=== PATIENT | female | born 2000 | race Caucasian/White ===

== ENCOUNTER 2024-03-02 07:33 | Emergency (ER) | payer OTHER, SELFPAY ==
[2024-03-02] VITALS (7 sets, daily range): BP systolic 90–127; BP diastolic 58–72; BMI 27.6
--- NOTE | 2024-03-02 08:11 | ED.GENMED ---
History of Present Illness
<Gael Del Rosario DO, Resident - Last Filed: 03/02/24 13:36>
General
Chief Complaint: Abdominal Pain
Source: patient
Time Seen by Provider: 03/02/24 07:59
History of Present Illness
History of Present Illness:
Patient is a 24 YO F with no significant PMH presenting to ED with RUQ pain and NV for last week. She reports no fevers, headaches, SOB, CP, diarrhea, , numbness or tingling. LMP was 02/07/24.
If applicable-neuro sx onset
Date of onset of symptoms: 02/24/24
Past History
<Gael Del Rosario DO, Resident - Last Filed: 03/02/24 13:36>
Past History
ED Past Medical History: None
ED Past Surgical History: (2021)
Patient has exhibited threatening behavior?: No
PSI?: No
Social History
Tobacco: Non-smoker
Alcohol: None
Employment: Employed
Family History
Family History: Cancer ( cancer)
Review of Systems
<Gael Del Rosario DO, Resident - Last Filed: 03/02/24 13:36>
Review of Systems
Constitutional: Reports fatigue
EENT: Reports no symptoms
Respiratory: Reports no symptoms
Cardiac: Reports no symptoms
ABD/GI: Reports abdominal pain, nausea, vomiting and pain
: Reports no symptoms
Musculoskeletal: Reports no symptoms
Skin: Reports no symptoms
Phy Exam
<Gael Del Rosario DO, Resident - Last Filed: 03/02/24 13:36>
General Physical Exam
General Presentation: well appearing and no apparent distress
General age: appears stated age
General Skin: warm
General Habitus: normal
General Mental: alert
General Hydration: appears well hydrated
Cardiovascular Exam
Cardiovascular Exam: regular rate/rhythm, no edema, no gallop, no JVD, no murmur and normal peripheral pulses
Pulmonary Exam
Pulmonary Exam: lungs clear, no respiratory distress, no rales, chest non tender, no crackles, no rhonchi, no stridor, no wheezing and no cough
Gastrointestinal Exam
Gastrointestinal Exam: soft, no organomegaly, no pulsatile mass, non distended, no cva tenderness and tender
Course
<Gael Del Rosario DO, Resident - Last Filed: 03/02/24 13:36>
Orders/Labs/Results
Orders:
Orders
03/02/24 08:00
Test Result ONCE
03/02/24 08:14
Add On- LAB Urgent
Tests Added?: Lipase
03/02/24 08:40
Complete Blood Count/With Diff Urgent
Comprehensive Metabolic Panel Stat
HCG, Serum Qualitative Screen Stat
Lipase Stat
Comment: ADD ON.
03/02/24 08:43
Ketorolac [Toradol] 15 mg IV NOW STA
Ondansetron Injectable [Zofran] 4 mg IV NOW STA
US Abdomen Complete/Upper Urgent
Comment:
Reason For Exam: RUQ pain, intermittent 2 wks
03/02/24 08:45
Urinalysis Reflex To Culture Urgent
Date Specimen was Collected: 03/02/24
Time Specimen was Collected: 08:43
Urine Microscopic Reflex Cult Urgent
Urine Culture Urgent
JUSTIN Source: U
Specimen Description:
Date Specimen was Collected: 03/02/24
Time Specimen was Collected: 08:43
0.9% Sodium Chloride 1000 ml [Nss] 1,000 ml IV BOLUS
Abnormal Lab Results
03/02/24 03/02/24
08:40 08:45
RBC 4.11 L 10^6/uL
(4.20-5.40)
Absolute Lymphs (auto) 3.7 H 10^3/uL
(1.2-3.4)
Carbon Dioxide 21 L mmol/L
(22-30)
Calcium 10.4 H mg/dl
(8.4-10.2)
Leukocyte Esterase Rfl Trace A
(Negative)
Urine Bacteria (Reflex) Moderate A
(Negative)
03/02/24 08:40
03/02/24 08:40
Vital Signs
Initial and Last Documented VS:
Initial Vital Signs
Temp Pulse Resp BP Pulse Ox
98.4 F 85 18 127/72 97
03/02/24 07:35 03/02/24 07:35 03/02/24 07:35 03/02/24 07:35 03/02/24 07:35
Last Documented Vital Signs
Temp Pulse Resp BP Pulse Ox
98.4 F 55 18 90/60 98
03/02/24 07:35 03/02/24 13:06 03/02/24 07:35 03/02/24 13:06 03/02/24 12:00
<Jesus Jha, DO - Last Filed: 03/02/24 11:15>
Orders/Labs/Results
Orders:
Orders
03/02/24 08:00
Test Result ONCE
03/02/24 08:14
Add On- LAB Urgent
Tests Added?: Lipase
03/02/24 08:40
Complete Blood Count/With Diff Urgent
Comprehensive Metabolic Panel Stat
HCG, Serum Qualitative Screen Stat
Lipase Stat
Comment: ADD ON.
03/02/24 08:43
Ketorolac [Toradol] 15 mg IV NOW STA
Ondansetron Injectable [Zofran] 4 mg IV NOW STA
US Abdomen Complete/Upper Urgent
Comment:
Reason For Exam: RUQ pain, intermittent 2 wks
03/02/24 08:45
Urinalysis Reflex To Culture Urgent
Date Specimen was Collected: 03/02/24
Time Specimen was Collected: 08:43
Urine Microscopic Reflex Cult Urgent
Urine Culture Urgent
JUSTIN Source: U
Specimen Description:
Date Specimen was Collected: 03/02/24
Time Specimen was Collected: 08:43
0.9% Sodium Chloride 1000 ml [Nss] 1,000 ml IV BOLUS
Abnormal Lab Results
03/02/24 03/02/24
08:40 08:45
RBC 4.11 L 10^6/uL
(4.20-5.40)
Absolute Lymphs (auto) 3.7 H 10^3/uL
(1.2-3.4)
Carbon Dioxide 21 L mmol/L
(22-30)
Calcium 10.4 H mg/dl
(8.4-10.2)
Leukocyte Esterase Rfl Trace A
(Negative)
Urine Bacteria (Reflex) Moderate A
(Negative)
03/02/24 08:40
03/02/24 08:40
Vital Signs
Initial and Last Documented VS:
Initial Vital Signs
Temp Pulse Resp BP Pulse Ox
98.4 F 85 18 127/72 97
03/02/24 07:35 03/02/24 07:35 03/02/24 07:35 03/02/24 07:35 03/02/24 07:35
Last Documented Vital Signs
Temp Pulse Resp BP Pulse Ox
98.4 F 55 18 90/60 98
03/02/24 07:35 03/02/24 13:06 03/02/24 07:35 03/02/24 13:06 03/02/24 12:00
<Gael Del Rosario DO, Resident - Last Filed: 03/02/24 13:36>
MDM/Problems Addressed
Differential Diagnosis Includes:
cholecystitis, pancreatitis, biliary colic
MDM/Problems Addressed:
Patient is a 24 YO F with no significant PMH presenting to ED with RUQ pain and NV for last week. Fluids, Toradol, ans Zofran given. Dr. Zuñiga (General Surgery) consulted and to see patient in ED. PO challenge per surgery recommendations and
elective surgery to be performed on 03/14.
Chronic conditions affecting care:
abdominal pain
Acute Exacerbation and/or Progression of Chronic Illness:
abdominal pain
<Gael Del Rosario DO, Resident - Last Filed: 03/02/24 13:36>
*Radiology
Radiology exam reviewed: radiology read reviewed (US abdomen showed contracted gallbladder and stones. c/f cholecystitis )
*Pulse Oximetry
Patient hypoxic: no
*EKG
Interpreted by ED Provider?: NA
*Fruit Loader Interpretation
Rate: Fruit Loader- N/A
*Critical Care Note
Total Time (30-74mins, 75-104mins- exclusive of procedures): Not Applicable
ED Attending Note
<Gael Del Rosario DO, Resident - Last Filed: 03/02/24 13:36>
-
Portions of this chart may have been created with voice recognition software.� Occasional wrong word or��sound alike� substitutions may have occurred due to the inherent limitations of voice recognition software.
<Jesus Jha DO - Last Filed: 03/02/24 11:15>
ED Attending Note
Patient seen and examined by attending physician: Yes
I performed a history and physical exam of patient and discussed management with resident, I reviewed resident's note and agree with documented findings and plan of care.: Yes
ED Attending Note:
I have reviewed and agree with history and treatment plan by Gael Del Rosario. My exam revealed 24-year-old female, afebrile. Right upper quadrant tenderness. No rebound or guarding. Ultrasound consistent with cholelithiasis, contracted
gallbladder, concern for cholecystitis. Dr. Zuñiga, contacted, general surgery to see patient in the ED.
Discharge Plan
Departure
Patient Disposition: Home (Routine Discharge)
Date of Disposition: 03/02/24
Time of Disposition: 13:06
Patient with high blood pressure during this ER visit?: No
Condition: Fair
Discharge Problem:
Biliary colic
Instructions: Choosing surgery to treat gallstones
Prescriptions:
No Action
escitalopram oxalate 10 MG tablet
20 mg PO DAILY
Referrals:
Francesca Merrill NP [Family Provider] -
John Zuñiga MD [Active] - Keep scheduled appt
Stand Alone Forms: Return to Work
Interventions
Interventions:
*Risk Screen - Suicide Last Done: 03/02/24 07:35
*General Assessment Last Done: 03/02/24 07:35
*Neglect/Abuse Screening Last Done: 03/02/24 07:35
ED- Fall Risk Assessment Last Done: 03/02/24 09:09
*ED COVID-19 Vaccine History Last Done: 03/02/24 07:52
ZT-Urhoww-Bvlbjqkmvz Assessment Last Done: 03/02/24 07:52
Discharge Date and Time
Print Language: HUNGARIAN
[2024-03-02 08:49] LABS: % Basophils 0.4 % (0-2); % Eosinophils 1.3 % (0-6); % Immature Granulocytes 0.3 % (0-0.5); % Lymphocytes 47.1 % (20.5-51.1); % Monocytes 7.3 % (1.7-9.3); % Neutrophils 43.6 % (42.2-75.2); Absolute Eosinophils 0.1 10^3/uL (0-0.7); Absolute Lymphocytes 3.7 10^3/uL (1.2-3.4); Absolute Monocytes 0.6 10^3/uL (0.1-0.6); Absolute Neutrophils 3.4 10^3/uL (1.4-6.5); Hematocrit 37.1 % (37.0-47.0); Hemoglobin 12.6 g/dL (12.0-16.0); Mean Corpuscular Hgb 30.7 pg (27.0-31.0); Mean Corpuscular Volume 90.3 fL (81.0-99.0); Mean Platelet Volume 10.1 fL (7.4-10.4); Nucleated Red Blood Cells % 0 %; Platelet Count 325 10^3/uL (130-400); Red Blood Cell Count 4.11 10^6/uL (4.20-5.40); Red Cell Dist. Width 12.9 % (11.5-14.5); White Blood Cell Count 7.8 10^3/uL (4.8-10.8)
[2024-03-02] MEDS: TORADOL 15 MG IV (08:50)
[2024-03-02] MEDS: NSS 1000 IV (08:50)
[2024-03-02] MEDS: ZOFRAN 4 MG IV (08:51)
[2024-03-02 09:01] LABS: HCG, Serum Qualitative Screen Negative
[2024-03-02 09:03] LABS: Urine Albumin Negative (Neg - Trace); Urine Bilirubin Negative (Negative); Urine Character Clear (Clear); Urine Color Yellow; Urine Glucose Negative (Negative); Urine Ketone Negative (Negative); Urine Leukocyte Trace (Negative); Urine Nitrite Negative (Negative); Urine Occult Blood Negative (Negative); Urine Specific Gravity 1.015 (<1.030); Urine Urobilinogen Negative (Neg - 1+); Urine pH 6.5 (5.0-9.0)
[2024-03-02 09:06] LABS: ALT (SGPT) 22 U/L (0-35); AST (SGOT) 25 U/L (14-36); Albumin 4.8 g/dl (3.5-5.0); Alkaline Phosphatase 68 U/L (38-126); Blood Urea Nitrogen 15 mg/dl (7-17); Calcium 10.4 mg/dl (8.4-10.2); Carbon Dioxide 21 mmol/L (22-30); Chloride 105 mmol/L (98-107); Estimated Creatinine Clearance 117 ml/min; Glucose 96 mg/dl (70-99); Potassium 4.2 mmol/L (3.5-5.1); Sodium 137 mmol/L (135-145); Total Bilirubin 0.7 mg/dl (0.2-1.3); Total Protein 7.4 g/dl (6.3-8.2); eGFR > 60.00
[2024-03-02 09:13] LABS: Urine Squamous Cell 16-20 /LPF (Few); Urine Urothelial Cell 0-2 /LPF (FEW)
[2024-03-02 09:14] LABS: Urine Bacteria Moderate (Negative); Urine Red Blood Cell 0-2 /HPF (0-2)
[2024-03-02 09:39] LABS: Lipase 67 U/L (23-300)
--- NOTE | 2024-03-02 11:53 | CON.GS ---
Addendum entered and electronically signed by John Zuñiga MD 03/02/24 12:08:
Pt prefers to defer surgery today and return electively. My office will schedule for surgery 03/14/24. She was informed of this date.
In the meantime she was advised to avoid fat in her diet as much as possible, to manage pain with ibuprofen, rest, warm compress. Advised to RTED if pain duration>8-12 hrs, if she develops f/c/n/v.
Plan for PO challenge and DC home if tolerates.
Original Note:
Consultation
-
Requesting Provider: Carin
Performing Provider: Yogesh
Reason for Consultation: RUQ pain, gallstones
Medical History
-
Chief Complaint: Abd pain
History of Present Illness:
24F with 1 week of intermittent abd pain without clear triggers or relieving factors. Denies radiation to her back or anywhere else. Endorses nausea throughout the week with vomiting at home last night prior to admit. Pain was progressive and
localized to RUQ, now is improved. Denies f/c, denies changes to urine/stool.
Past Medical History
Past Medical History: Reviewed & Noncontributory
Past Surgical History: Reviewed & Noncontributory and
Social History
Tobacco: Non-Smoker
Alcohol: None
Personal: Partner
Living: With Family
Employment: Employed
Family History
Family History: Reviewed & Noncontributory
Allergies / Home Medications
Allergy/AdvReac Type Severity Reaction Status Date / Time
nitrofurantoin Allergy Unknown Verified 03/02/24 07:35
[From Macrobid]
�Medication �Instructions �Recorded �Confirmed �Type
escitalopram oxalate 10 mg tablet 20 mg PO DAILY 10/07/16 01/02/17 History
Review of Systems
-
A 10 point review of systems was completed, and was negative except as per HPI.
Physical Exam
Vital Signs
Temp Pulse Resp BP Pulse Ox
98.4 F 85 18 98/69 100
03/02/24 07:35 03/02/24 07:35 03/02/24 07:35 03/02/24 11:05 03/02/24 11:05
03/01/24 03/02/24 03/03/24
06:59 06:59 06:59
Actual Weight 61.9 kg
Body Mass Index (BMI) 27.6
Lab Results
03/02/24 08:40
03/02/24 08:40
WBC 7.8 10^3/uL (4.8-10.8) 03/02/24 08:40
Hgb 12.6 g/dL (12.0-16.0) 03/02/24 08:40
Hct 37.1 % (37.0-47.0) 03/02/24 08:40
Plt Count 325 10^3/uL (130-400) 03/02/24 08:40
Abs Immat Gran (auto) 0.0 10^3/uL (0-0.05) 03/02/24 08:40
Neutrophils % 43.6 % (42.2-75.2) 03/02/24 08:40
Physical Exam
General: Well Developed, Well Nourished and No Apparent Distress
GI: Soft, Non Distended and Tender (mild ttp RUQ without R/R/G)
Skin: Warm and Dry
Neuro: AO x 3
Psych: Calm
Data Reviewed
-
Ultrasound: Image Personally Visualized and interpreted, Report Reviewed by me, Discussed with Nurse and Discussed with Patient
Labs: Labs Reviewed by me, Discussed with Nurse and Discussed with Patient
Assessment / Plan
-
24F with symptomatic cholelithiasis vs ACC
AFVSS, mildly tender to RUQ on exam but reports improvement overall in her pain
No leukocytosis, no left shift
LFTs WNL
US shows significant stone burden, no GBWT, no PCF, CBD 3mm
Plan:
Discussed options including CCY today vs PO challenge and home with return for elective CCY at a date in the near future
She prefers to discuss with her fiance before making a final decision
== END 2024-03-02 13:42 | disposition home or self-care (01) ==
LOC: EMR 07:33
PROVIDERS: EMERGENCY PHYSICIAN Emergency Medicine; FAMILY PHYSICIAN Nurse Practitioner Family
DX: K80.70 Calculus of gallbladder and bile duct without cholecystitis without obstruction (principal)
CPT/HCPCS: 99284; 96374; 96375; 96361; 76700; 80053; 81003; 81015; 83690; 84703; 85025; 87086

== ENCOUNTER 2024-03-14 06:16 | Day surgery (SDC) | payer OTHER, SELFPAY ==
[2024-03-14] VITALS (11 sets, daily range): BP systolic 92–107; BP diastolic 52–75; BMI 27.4
[2024-03-14] MEDS: NORMOSOL-R 1000 IV (12:55)
[2024-03-14] MEDS: TYLENOL 1000 MG PO (13:04)
--- NOTE | 2024-03-14 15:57 | OR.RPT ---
Operative Report
Operative Report
Primary Surgeon: Yogesh
Assisting: Zunilda URIBE
Pre-op Diagnosis: Biliary colic
Post-op Diagnosis: Same
Procedure Performed: Robot assisted laparoscopic cholecystectomy
Anesthesia Type: GETA
Specimen / Cultures: Gallbladder
Estimated Blood Loss: 2cc
Complications: None immediate
Operative Findings: Softly distended gallbladder without fibrosis or wall thickening
Date of Surgery:� 03/14/24
Indications: This 24F developed biliary colic with normal liver enzymes and without ductal dilation. Laparoscopic cholecystectomy with robotic assist was elected.
Description of procedure: The patient was placed on the operating table in the supine position. General anesthesia was induced. A time-out was completed verifying correct patient, procedure, site, positioning, and special equipment prior to
beginning this procedure. An orogastric tube was placed. The abdomen was prepped and draped in the usual sterile fashion. A stab incision was made in left upper quadrant and the Veress needle was inserted. Proper position was confirmed by aspiration
and saline meniscus test. The abdomen was insufflated with carbon dioxide to a pressure of 12mmHg. The patient tolerated insufflation well.
A 8mm trocar was then inserted above the umbilicus. The laparoscope was inserted and the abdomen inspected. No injuries from initial trocar placement or Veress needle insertion were noted. Additional 8mm trocars were then inserted in the following
locations: two in the right lower quadrant and to the left of the umbilicus and just above. The abdomen was inspected and no abnormalities were found. The table was placed in the reverse Trendelenburg position with the right side up. The dome of the
gallbladder was grasped with an atraumatic grasper and retracted over the dome of the liver. The infundibulum was then grasped with an atraumatic grasper and retracted toward the right lower quadrant. This maneuver exposed Calot�s triangle. The
peritoneum overlying the gallbladder infundibulum was then incised and the cystic duct and cystic artery identified and circumferentially dissected so that a clear view of the liver was achieved through a window between the cystic duct an cystic
artery. At this time, the only two structures going into the gallbladder were the cystic artery and cystic duct.
The cystic duct was then doubly clipped and divided. The cystic artery was controlled with bipolar and divided. The gallbladder was then dissected from its peritoneal attachments by electrocautery. The gallbladder was removed using an endoscopic
retrieval bag placed through the umbilical port. The gallbladder was passed off the table as a specimen. The gallbladder fossa was closely inspected. There was no evidence of bleeding from the gallbladder fossa or cystic artery or leakage of the
bile from the cystic duct stump. The umbilical trocar site was closed at the fascial level with 2-0 PDS. Secondary trocars were removed under direct vision and noted to be hemostatic. The abdomen was allowed to collapse. The skin was closed with
subcuticular sutures of 4-0 monocryl and topical skin adhesive. The orogastric tube was removed.
The patient tolerated the procedure well and was taken to the postanesthesia care unit in stable condition.
The assistance of Zunilda URIBE was required due to the complexity of the procedure. During the procedure she assisted with retraction, resection, and closure of the wound.
== END 2024-03-14 18:25 | disposition home or self-care (01) ==
LOC: SDS 06:16
PROVIDERS: ATTENDING PHYSICIAN Surgery
DX: K80.44 Calculus of bile duct with chronic cholecystitis without obstruction (principal); K80.50 Calculus of bile duct without cholangitis or cholecystitis without obstruction
CPT/HCPCS: 47562; 88304

== ENCOUNTER 2024-09-21 08:17 | Emergency (ER) | payer OTHER, SELFPAY ==
[2024-09-21 08:18] VITALS: BP 106/65
[2024-09-21] MEDS: ZOFRAN 4 MG IV (08:43)
[2024-09-21] MEDS: TORADOL 30 MG IV (08:43)
[2024-09-21 08:45] VITALS: BMI 24.6
--- NOTE | 2024-09-21 08:50 | ED.GENMED ---
History of Present Illness
General
Chief Complaint: Flank Pain
Source: patient
Exam Limitations: none
Time Seen by Provider: 09/21/24 08:24
Nursing documentation reviewed up to this point in time: agreed with
History of Present Illness
History of Present Illness:
24-year-old female with a history of benign cholecystectomy in February presents for right upper quadrant pain that radiates to her right flank and back intermittently for the past 2 days. Patient says initially the pain was mild, she was
using ibuprofen last dose yesterday to help with the pain. It did not really help. She had a resurgence of pain this morning at 630 after she was already awake companied by nausea. She had no fever or chills, vomiting, diarrhea, constipation,
hematuria or dysuria. Patient did not take anything this morning for pain. It seems to have eased up now from an 8 out of 10 to a 4 out of 10. She has pain with movement. She does not feel short of breath and has not had a cough. Her last
menstrual period was 12�23. She has never had a kidney stone
Past History
Past History
ED Past Medical History: None
ED Past Surgical History: Cholecystectomy and (2021)
Patient has exhibited threatening behavior?: No
PSI?: No
Social History
Tobacco: Non-smoker
Alcohol: None
Drug: None
Employment: Employed
Family History
Family History: Cancer ( cancer)
Review of Systems
Review of Systems
Allergies reviewed?: Yes
All Other Systems: Not applicable
Phy Exam
Physical Exam
Physical Exam:
GENERAL: Alert, very comfortable
Neck: supple
CARDIAC: Regular rate and rhythm .
LUNGS: Clear breath sounds bilaterally, no acute respiratory distress, no wheezes/rales/rhonchi
ABDOMEN: Soft, normal bowel sounds, nondistended, mild right upper quadrant tenderness, mild right flank tenderness, no CVA tenderness no guarding, no rebound, neg burrell's
NEUROLOGICAL: Alert and oriented, no focal neuro deficits
SKIN: Warm and dry, skin intact.
PSYCH: Normal and appropriate interaction.
Course
Orders/Labs/Results
Orders:
Orders
09/21/24 08:26
Test Result ONCE
09/21/24 08:33
Complete Blood Count/With Diff Urgent
Comprehensive Metabolic Panel Urgent
HCG, Serum Qualitative Screen Urgent
Lipase Urgent
Urinalysis Reflex To Culture Urgent
Date Specimen was Collected: 09/21/24
Time Specimen was Collected: 08:26
09/21/24 08:36
Ketorolac [Toradol] 30 mg IV NOW STA
Ondansetron Injectable [Zofran] 4 mg IV NOW STA
09/21/24 09:11
CT Abd/Pel (IV only)-DH only Urgent
Comment:
Reason For Exam: RUQ/R flank pain, nausea;
Abnormal Lab Results
09/21/24
08:33
RBC 4.08 L 10^6/uL
(4.20-5.40)
MCHC 32.7 L g/dL
(33.0-37.0)
Absolute Monos (auto) 0.8 H 10^3/uL
(0.1-0.6)
09/21/24 08:33
09/21/24 08:33
Vital Signs
Initial and Last Documented VS:
Initial Vital Signs
Temp Pulse Resp BP Pulse Ox
36.9 C 88 16 106/65 100
09/21/24 08:18 09/21/24 08:18 09/21/24 08:18 09/21/24 08:18 09/21/24 08:18
Last Documented Vital Signs
Temp Pulse Resp BP Pulse Ox
36.9 C 78 16 117/68 96
09/21/24 08:18 09/21/24 10:49 09/21/24 10:49 09/21/24 10:49 09/21/24 10:49
MDM/Problems Addressed
Differential Diagnosis Includes:
Ureterolithiasis, choledocholithiasis, musculoskeletal pain, constipation
MDM/Problems Addressed:
24-year-old female with a history of cholecystectomy in the past presents for right upper quadrant pain to her back. It has been intermittent for the past 2 days with a worsening in severity this morning. It is accompanied by nausea without
vomiting. There is no urinary symptoms. On exam she is well-appearing, has some pain with changing positions in the stretcher. She is tender to her right upper quadrant and right flank mild to moderately without guarding, there is no CVA
tenderness, there is no right lower quadrant tenderness. Will evaluate with labs and urine initially before ordering imaging, differential includes kidney stone, common bile duct stone, musculoskeletal causes
09/21/2024 1034 AM
Patient feels better after the Toradol. Her lab results and urine and CAT scan were all reviewed with her. She had no abnormal findings on blood work. Her CT showed a normal appendix. She does have what looks to be an involuting small right
ovarian cyst. Patient gets them frequently and usually has pain in her pelvis. This is really more her flank. It is worse with movement and does seem to be more musculoskeletal. She is having no pleuritic component, no shortness of breath and no
cough or cold symptoms. She is PERC negative.
At this point we will treat with NSAIDs for presumed musculoskeletal causes. I would expect if she had a common bile duct stone that she would have elevation of her liver markers.
She was told to return for any worsening symptoms
*Critical Care Note
Total Time (30-74mins, 75-104mins- exclusive of procedures): Not Applicable
ED Attending Note
-
Portions of this chart may have been created with voice recognition software.� Occasional wrong word or��sound alike� substitutions may have occurred due to the inherent limitations of voice recognition software.
Discharge Plan
Departure
Patient Disposition: Home (Routine Discharge)
Date of Disposition: 09/21/24
Time of Disposition: 10:35
Patient with high blood pressure during this ER visit?: No
Condition: Fair
Covid-19: Not Applicable
Discharge Problem:
Acute flank pain, Ovarian cyst
Instructions: Flank Pain (DC)
Prescriptions:
No Action
ibuprofen [Advil] 200 mg Tablet
400 - 600 mg PO PRN PRN (Reason: Pain)
tramadol 50 mg tablet
50 mg PO Q6H PRN (Reason: Pain) Qty: 20 0RF
Referrals:
UNKNOWN - PT DOES,NOT KNOW [Family Provider] -
Stand Alone Forms: Return to Work
Activity Restrictions/Additional Instructions:
Were not entirely sure the cause of your flank pain today. You had no signs of a kidney stone, no urinary findings and normal appendix on your CAT scan. You do have a small involuting right ovarian cyst. Usually this will cause pain in your lower
pelvis. So this pain may be musculoskeletal. Try ibuprofen 600 mg as 3 [id number] tablets every 8 hours with food for the next 3 to 5 days. Watch for rash, worsening symptoms like shortness of breath, fever, vomiting, diarrhea, urinary
changes and return as needed. Otherwise follow-up with your doctor
Interventions
Interventions:
*Risk Screen - Suicide Last Done: 09/21/24 08:18
*General Assessment Last Done: 09/21/24 08:45
*Neglect/Abuse Screening Last Done: 09/21/24 08:37
ED- Fall Risk Assessment Last Done: 09/21/24 08:37
*Nursing Disposition Last Done: 09/21/24 10:49
JF-Gafxpy-Qmyhybckid Assessment Last Done: 09/21/24 08:37
ED-Female Genitourinary Assessment Last Done: 09/21/24 08:37
Discharge Date and Time
Discharge Date/Time: 09/21/24 10:51
Print Language: ICELANDIC
[2024-09-21 08:51] LABS: HCG, Serum Qualitative Screen Negative
[2024-09-21 08:55] LABS: % Basophils 0.5 % (0-2); % Eosinophils 0.9 % (0-6); % Immature Granulocytes 0.2 % (0-0.5); % Monocytes 8.8 % (1.7-9.3); % Neutrophils 51.6 % (42.2-75.2); ALT (SGPT) 16 U/L (0-35); AST (SGOT) 21 U/L (14-36); Absolute Eosinophils 0.1 10^3/uL (0-0.7); Absolute Lymphocytes 3.3 10^3/uL (1.2-3.4); Absolute Monocytes 0.8 10^3/uL (0.1-0.6); Absolute Neutrophils 4.5 10^3/uL (1.4-6.5); Albumin 4.7 g/dl (3.5-5.0); Alkaline Phosphatase 71 U/L (38-126); Blood Urea Nitrogen 11 mg/dl (7-17); Calcium 9.4 mg/dl (8.4-10.2); Carbon Dioxide 25 mmol/L (22-30); Chloride 102 mmol/L (98-107); Estimated Creatinine Clearance 99 ml/min; Glucose 98 mg/dl (70-99); Hematocrit 38.2 % (37.0-47.0); Hemoglobin 12.5 g/dL (12.0-16.0); Mean Corp Hgb Conc. 32.7 g/dL (33.0-37.0); Mean Corpuscular Hgb 30.6 pg (27.0-31.0); Mean Corpuscular Volume 93.6 fL (81.0-99.0); Nucleated Red Blood Cells % 0 %; Platelet Count 339 10^3/uL (130-400); Potassium 4.5 mmol/L (3.5-5.1); Red Blood Cell Count 4.08 10^6/uL (4.20-5.40); Sodium 138 mmol/L (135-145); Total Bilirubin 0.4 mg/dl (0.2-1.3); Total Protein 7.3 g/dl (6.3-8.2); White Blood Cell Count 8.8 10^3/uL (4.8-10.8); eGFR > 60.00
[2024-09-21 08:58] LABS: Urine Albumin Negative (Neg - Trace); Urine Bilirubin Negative (Negative); Urine Character Clear (Clear); Urine Color Yellow; Urine Glucose Negative (Negative); Urine Ketone Negative (Negative); Urine Leukocyte Negative (Negative); Urine Nitrite Negative (Negative); Urine Occult Blood Negative (Negative); Urine Urobilinogen Negative (Neg - 1+)
[2024-09-21 10:27] LABS: Lipase 76 U/L (23-300)
[2024-09-21 10:49] VITALS: BP 117/68
== END 2024-09-21 10:51 | disposition home or self-care (01) ==
LOC: EMR 08:17
PROVIDERS: Physician Assistant; EMERGENCY PHYSICIAN Emergency Medicine
DX: R10.11 Right upper quadrant pain (principal); N83.201 Unspecified ovarian cyst, right side; Z90.49 Acquired absence of other specified parts of digestive tract
CPT/HCPCS: 99284; 96374; 96375; 74177; 80053; 81003; 83690; 84703; 85025; Q9967

== ENCOUNTER 2025-06-22 13:01 | Emergency (ER) | payer OTHER, SELFPAY ==
[2025-06-22 13:04] VITALS: BP 107/69
[2025-06-22] MEDS: NSS 1000 IV (14:54)
[2025-06-22] MEDS: REGLAN 10 MG IV (14:54)
[2025-06-22] MEDS: BENADRYL 25 MG IV (14:54)
--- NOTE | 2025-06-22 15:08 | EDRN ---
Pt asking for help, pt notified this RN that her IV came out. Pt immediately got up and requested to use the restroom, pt directed to restroom. This RN changed pts bed linens and set up for new IV for when pt got back from bathroom. Pt did not come
back to 8, Dr. Burks notified and is going to contact pt. assignment editor aware.
[2025-06-22 15:18] LABS: Urine Character Cloudy (Clear)
--- NOTE | 2025-06-22 15:19 | ED.GENMED ---
History of Present Illness
General
Chief Complaint: Headache
Source: patient
Time Seen by Provider: 06/22/25 14:03
History of Present Illness
History of Present Illness:
Note:
CHIEF COMPLAINT(S)
Severe headaches persisting for one week.
HISTORY OF PRESENT ILLNESS
The patient is a 25-year-old female in her first trimester of , approximately 14 weeks gestation, presenting with severe headaches that began one week ago. She describes the pain as starting at the back of her head and radiating to the
front, affecting her temples. The headaches have been persistent and unaffected by various attempts at relief, including acetaminophen, warm and cold compresses, and essential oils. Sleep provides temporary relief, but the headaches return upon
waking. The patient reports associated symptoms of nausea and visual disturbances, including seeing black and white spots and experiencing dizziness. There is no fever, recent injury, or gynecological complaints. Her past experiences with
-related and asm-dtkyuxtks-vwgcodi headaches are minimal and not as severe.
PAST SURGICAL HISTORY
The patient has had a section and cholecystectomy.
SOCIAL DETERMINANTS AFFECTING HEALTH
Reported adequate hydration, consuming approximately 32 ounces of water daily.
MEDICATIONS
Intermittent use of acetaminophen as needed.
PHYSICAL EXAM
General: Alert, no acute distress.
Neurological: Patient is awake, alert, and oriented. Cranial nerves intact. No signs of meningitis. No pronator drift. Strength is equal bilaterally. No visual field deficits, pupils equally round and reactive to light.
Cardiovascular: Regular heart rate and rhythm, no murmurs.
Respiratory: No respiratory distress observed.
Abdomen: Soft, non-tender, non-distended.
PLAN
1. Administer scheduled antiemetics (compazine) combined with intravenous fluids and diphenhydramine to address nausea and headaches.
2. Monitor response to the above treatment and reassess.
3. Consider further diagnostic studies, such as MRI, if symptoms persist or do not respond to initial treatment.
4. Urinalysis to evaluate for asymptomatic bacteriuria, as part of the protocol for patients.
5. Educate and discuss symptoms of preeclampsia for immediate follow-up if any occur, although unlikely in the first trimester.
DIFFERENTIAL DIAGNOSIS
The Differential Diagnosis includes, in no particular order and is not limited to:
1. Migraine headache
2. Tension headache
3. Cluster headache
4. Hypertensive disorder of
5. Preeclampsia
6. Sinusitis
7. Dehydration
8. Ophthalmic-related headache
9. Meningitis
10. Medication overuse headache
Disposition:
SUMMARY OF ENCOUNTER
The patient, a 25-year-old female in the first trimester of , presented with severe headaches. Initial assessment noted the patient was well-appearing without any obstetrical complaints. After administration of scheduled treatment for her
symptoms, the goal was to observe and reassess her condition while awaiting urinalysis results. However, when attempting a follow-up assessment, the patient was not in her bed, leading to concerns she may have eloped. A voicemail was left for the
patient to return for reassessment.
DISPOSITION
Eloped
ASSESSMENT
Severe headaches in a patient. Low suspicion for meningitis and dural venous sinus thrombosis.
EMERGENCY TREATMENTS ADMINISTERED
Administered a scheduled antiemetic combined with intravenous fluids and diphenhydramine.
MEDICAL DECISION MAKING
-Complexity of Data Reviewed: Chronic conditions affecting care include past section and cholecystectomy. Differential diagnosis includes migraine headache, tension headache, cluster headache, hypertensive disorder of ,
preeclampsia, sinusitis, dehydration, ophthalmic-related headache, meningitis, and medication overuse headache.
-Data: None available due to elopement.
-Risk: Consideration of Admission/Observation was noted during initial management to ensure patient safety, which included the decision to observe following standard treatment. However, due to the patient eloping, further risk assessment was not
possible.
DIAGNOSIS
R51.9 - Headache, unspecified
Past History
Past History
ED Past Medical History: None
ED Past Surgical History: Cholecystectomy and (2021)
Patient has exhibited threatening behavior?: No
PSI?: No
Social History
Tobacco: Non-smoker
Alcohol: None
Drug: None
Employment: Employed
Family History
Family History: Cancer ( cancer)
Phy Exam
Physical Exam
Physical Exam:
.
Course
Orders/Labs/Results
Orders:
Orders
06/22/25 14:20
0.9% Sodium Chloride 1000 ml [Nss] 1,000 ml IV BOLUS
Diphenhydramine [Benadryl] 25 mg IV NOW STA
Metoclopramide [Reglan] 10 mg IV NOW STA
06/22/25 14:37
Urinalysis Reflex To Culture Urgent
Date Specimen was Collected: 06/22/25
Time Specimen was Collected: 14:34
Urine Microscopic Reflex Cult Urgent
Urine Culture Urgent
JUSTIN Source: U
Specimen Description:
Date Specimen was Collected: 06/22/25
Time Specimen was Collected: 14:34
Abnormal Lab Results
06/22/25
14:37
Urine Ketones 2+ A
(Negative)
Leukocyte Esterase Rfl 1+ A
(Negative)
Urine Albumin (Reflex) 1+ A
(Neg - Trace)
Vital Signs
Initial and Last Documented VS:
Initial Vital Signs
Temp Pulse Resp BP Pulse Ox
98.0 F 83 16 107/69 98
06/22/25 13:04 06/22/25 13:04 06/22/25 13:04 06/22/25 13:04 06/22/25 13:04
Last Documented Vital Signs
Temp Pulse Resp BP Pulse Ox
98.0 F 83 16 107/69 98
06/22/25 13:04 06/22/25 13:04 06/22/25 13:04 06/22/25 13:04 06/22/25 15:21
*Pulse Oximetry
SaO2: 98
Oxygen Mode of Delivery: Room air
Patient hypoxic: no
*Critical Care Note
Total Time (30-74mins, 75-104mins- exclusive of procedures): Not Applicable
ED Attending Note
-
Portions of this chart may have been created with voice recognition software.� Occasional wrong word or��sound alike� substitutions may have occurred due to the inherent limitations of voice recognition software.
Discharge Plan
Departure
Patient Disposition: Elopement
Date of Disposition: 06/22/25
Time of Disposition: 15:29
Discharge Problem:
Headache
Prescriptions:
No Action
ibuprofen [Advil] 200 mg Tablet
400 - 600 mg PO PRN PRN (Reason: Pain)
tramadol 50 mg tablet
50 mg PO Q6H PRN (Reason: Pain) Qty: 20 0RF
Referrals:
UNKNOWN - PT DOES,NOT KNOW [Family Provider]
Interventions
Interventions:
*Risk Screen - Suicide Last Done: 06/22/25 13:04
*Neglect/Abuse Screening Last Done: 06/22/25 13:04
ED- Neurological Assessment Last Done: 06/22/25 14:30
Discharge Date and Time
Print Language: CITIZEN [place]
[2025-06-22 17:40] LABS: Urine Red Blood Cell 0-2 /HPF (0-2); Urine White Cell 0-2 /HPF (0-5)
== END 2025-06-22 15:08 | disposition left against medical advice (07) ==
LOC: EMR 13:01
PROVIDERS: EMERGENCY PHYSICIAN Emergency Medicine
DX: O26.892 Other specified pregnancy related conditions, second trimester (principal); Z3A.14 14 weeks gestation of pregnancy
CPT/HCPCS: 99284; 96374; 96375; 81003; 81015; 87086